=== PATIENT | female | born 1990 | race Caucasian/White ===

== ENCOUNTER → 2017-05-10 | Outpatient (CLI) | payer OTHER ==
[~2017-05-10] MED LIST: BECL0.07 INH; BIRTH CONTROL PO; CLON.5 PO; CRANCAP2 PO; DICY10 PO; LO LTAB PO; MONT10TA2 PO; SACC1CAP3 PO; SERT-132 PO; TRAM50TA PO
[2017-05-10 14:36] LABS: BLOOD, URINE NEG (NEG); COMMENT (UR) CULT NOT INDICATED; CULTURE IF INDICATED CULT NOT INDICATED; GLUCOSE,URINE NEG (NEG); KETONE, URINE NEG (NEG); MUCUS URINE FEW /lpf (OCC); NITRITE,URINE NEG (NEG); PH, URINE 5.5 (5.0-8.5); URINE COLOR YELLOW (YELLW/STRAW)
[2017-05-10 14:38] LABS: AUTOMATED NEUTROPHIL # 6.7 TH/MM3 (1.8-7.7); BASOPHIL # 0.1 TH/MM3 (0-0.2); BASOPHIL % 0.9 % (0.0-2.0); EOSINOPHIL # 0.2 TH/MM3 (0-0.4); EOSINOPHIL % 1.7 % (0.0-4.0); HEMATOCRIT 40.2 % (35.0-46.0); HEMO FLAGS DIFF FINAL; LYMPH % 32.7 % (9.0-44.0); LYMPHOCYTE # 3.6 TH/MM3 (1.0-4.8); MEAN CORPUSCULAR HEMOGLOBIN 31.1 PG (27.0-34.0); MEAN CORPUSCULAR HGB CONC 33.4 % (32.0-36.0); MONO % 4.4 % (0.0-8.0); NEUT % 60.3 % (16.0-70.0); PLATELET COUNT 357 TH/MM3 (150-450); RED BLOOD COUNT 4.32 MIL/MM3 (4.00-5.30); RED CELL DISTRIBUTION WIDTH 12.2 % (11.6-17.2)
[2017-05-10 15:27] LABS: BETA HCG QUANT LESS THAN 1 MIU/ML (0-5)
--- NOTE | 2017-05-12 07:51 | EKG ---
Date Performed: 05/10/2017 Time Performed: 14:05:36 PTAGE: 27 years EKG: Sinus rhythm Within normal limits NO PREVIOUS TRACING DOCTOR: Hitesh Caputo Interpretating Date/Time 05/12/2017 07:49:37
== END ==
LOC: CPRE 13:40
PROVIDERS: ATTEND Obstetrics & Gynecology
DX: Z01.810 Encounter for preprocedural cardiovascular examination (principal); Z01.812 Encounter for preprocedural laboratory examination; R10.2 Pelvic and perineal pain
CPT/HCPCS: 36415; 81001; 84702; 85025; 93005

== ENCOUNTER → 2017-05-13 | Day surgery (SDC) | payer OTHER ==
[~2017-05-13] VITALS: Ht 175.3 cm; Wt 97.2 kg
[~2017-05-13] MED LIST changes: +ACETAMINOPHEN 1000 MG/100 ML 100 ML IV ONE; +ACETAMINOPHEN 1000 MG/100 ML VIAL IV SCH; -BIRTH CONTROL PO; +CHLORHEXIDINE GLUCONATE 2 % 1 PACK (2 CLOTHS) TOPICAL PRN; +DEXAMETHASONE SOD PHOS 4 MG/ML VIAL IV ONE; -DICY10 PO; +DO NOT ADM ANY ANTICOAGULANT DRUGS PRN; +FAMOTIDINE 20 MG/2 ML VIAL ONE; +INSULIN HUMAN REGULAR 1,000 UNITS/10 ML VIAL SQ PRN; +KETOROLAC TROMETHAMINE 30 MG/ML (IVP) VIAL IV PUSH ONE; +LACTATED RINGER'S 1000 ML INJ 1,000 ML ONE; +LACTATED RINGER'S 1000 ML IV PRN; +METHYLENE BLUE 100 MG/10 ML VIAL ONE; +METOCLOPRAMIDE HCL 10 MG/2 ML VIAL IV PRN; +METOPROLOL TARTRATE 25 MG TAB PO PRN; +MIDAZOLAM HCL 2 MG/2 ML VIAL IV ONE; +ONDANSETRON HCL 4 MG/2 ML VIAL IV PUSH ONE; +OXYTOCIN 10 UNIT/ML AMP ONE; +POVIDONE IODINE 5% (ANTISEPSIS KIT) 4 APPLICATIONS EACH NARE PRN; +PROPOFOL 200 MG/20 ML AMP IV ONE; +ROCURONIUM INJ 50 MG/5 ML SYRINGE IV PUSH ONE; +SODIUM CHLORID 0.9% 500 ML IV PRN; +SODIUM CHLORIDE 0.9% INJ 100 ML ONE; +SUGAMMADEX SODIUM 200 MG/2 ML VIAL IV PUSH ONE; +ceFAZolin 1,000 MG/NS 100 ML IV SCH; +ceFAZolin INJ 1,000 MG VIAL ONE; +oxyCODONE/ACETAMINOPHEN 5 MG/325 MG TAB PO PRN
--- NOTE | 2017-05-13 08:01 | MP ---
cc: VIN LEE DATE OF SURGERY 05/13/2017 PREOPERATIVE DIAGNOSIS Pelvic pain, possible endometriosis. POSTOPERATIVE DIAGNOSIS Pelvic pain, primary dysmenorrhea. PROCEDURE Laparoscopy, chromotubation with methylene blue. ANESTHESIA General ET SURGEON Vin Lee MD STOCK CONTROL CLERK Susanne Fuller ESTIMATED BLOOD LOSS Less than 5 cc FLUIDS About half liter of crystalloid. OBJECTIVE FINDINGS Following the induction of adequate general endotracheal anesthesia, the patient was prepped and draped supine on the operating table in the dorsolithotomy position in the usual sterile fashion with the bladder being drained via catheterization. Exam under anesthesia revealed a normal size and shape anterior uterus with no adnexal masses. A Dimock speculum was placed in the vagina. The anterior lip of the cervix was grasped with a single toothed tenaculum. The cervix and uterus sounded to 7 cm with a soft dilator and the cervix dilated with a #18 Hanks dilator. A HUMI was placed. The other valves removed. The poacher operator's gloves were changed. The abdomen was opened through a 1/2 cm infraumbilical incision. A five port was placed followed by laparoscope with attached video cam, a second 5 suprapubic. The pelvic contents revealed a normal uterus, tubes and ovaries, cul-de-sacs, liver edge, appendix with no visible disease. Methylene blue was injected, but did not fill as the tube was spasming. All counts were correct. All instruments were removed. The gas was allowed to escape and each wound was injected with 5 cc of 0.4% Marcaine with epinephrine and closed with 3-0 Monocryl subcuticular. The HUMI was removed from the vagina. Legs taken out of the stirrups. She was awakened and taken to the recovery room in good condition. MD MADHAV Dacosta/JUAN /7:32 AM /7:37 AM
--- NOTE | 2017-05-13 09:37 | MH ---
cc: VIN LEE DATE OF ADMISSION: 05/13/2017 ADMISSION DIAGNOSIS Pelvic pain, possible endometriosis. HISTORY OF PRESENT ILLNESS The patient is a 27-year-old single white female, para 0 with a history of ___ months pelvic pressure pre and post cycle and mid cycle. Ultrasound was normal. She has failed to improve with medical therapy. She is now admitted for surgical evaluation. PAST MEDICAL HISTORY PREVIOUS SURGERY Repair of right knee dislocation in 2006. MEDICATIONS 1. OCPs. 2. Singulair. 3. Sertraline. 4. Probiotics. 5. Qvar inhaler. ALLERGIES MELON. ILLNESSES 1. Asthma. 2. Possible IBS. OBSTETRICAL HISTORY None. 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 Alcohol occasional, tobacco none, drugs none. FAMILY HISTORY Noncontributory. PHYSICAL EXAMINATION GENERAL: A well-nourished, well-developed white female. VITAL SIGNS: Stable. HEENT: Exam is normal. CHEST: Chest is clear. HEART: Regular rate. BREASTS: Symmetrical. ABDOMEN: Benign. PELVIC EXAM: Normal external genitalia and BUS. Vagina is normal. Cervix is normal. The uterus is normal size, shape anterior. Adnexa nonpalpable. ASSESSMENT As above. She is now admitted for laparoscopy. While in the office I explained the procedures, the risks, benefits and complications and possible need for additional surgery pending findings. The patient would like to proceed. MD MADHAV Dacosta/TLL /8:56 AM /9:04 AM
[2017-05-13 10:03] VITALS: BP 107/67; PULSE 67; RESP 20; TEMP 97.2; O2SAT 97
== END | disposition home or self-care (01) ==
LOC: HSDC 05:32
PROVIDERS: ATTEND Obstetrics & Gynecology
DX: R10.2 Pelvic and perineal pain (principal); N94.6 Dysmenorrhea, unspecified; J45.909 Unspecified asthma, uncomplicated
CPT/HCPCS: 00840; 00952; 49320; 58350; J0131; J0690; J1100; J1885; J2250; J2405; J2590; J3010; J7120

== ENCOUNTER 2017-10-11 20:18 | Emergency (ER) | payer BC, OTHER ==
[~2017-10-11 20:18] MED LIST changes: -ACETAMINOPHEN 1000 MG/100 ML 100 ML IV ONE; -ACETAMINOPHEN 1000 MG/100 ML VIAL IV SCH; -CHLORHEXIDINE GLUCONATE 2 % 1 PACK (2 CLOTHS) TOPICAL PRN; -DEXAMETHASONE SOD PHOS 4 MG/ML VIAL IV ONE; -DO NOT ADM ANY ANTICOAGULANT DRUGS PRN; -FAMOTIDINE 20 MG/2 ML VIAL ONE; -INSULIN HUMAN REGULAR 1,000 UNITS/10 ML VIAL SQ PRN; -KETOROLAC TROMETHAMINE 30 MG/ML (IVP) VIAL IV PUSH ONE; -LACTATED RINGER'S 1000 ML INJ 1,000 ML ONE; -LACTATED RINGER'S 1000 ML IV PRN; -METHYLENE BLUE 100 MG/10 ML VIAL ONE; -METOCLOPRAMIDE HCL 10 MG/2 ML VIAL IV PRN; -METOPROLOL TARTRATE 25 MG TAB PO PRN; -MIDAZOLAM HCL 2 MG/2 ML VIAL IV ONE; -ONDANSETRON HCL 4 MG/2 ML VIAL IV PUSH ONE; -OXYTOCIN 10 UNIT/ML AMP ONE; -POVIDONE IODINE 5% (ANTISEPSIS KIT) 4 APPLICATIONS EACH NARE PRN; -PROPOFOL 200 MG/20 ML AMP IV ONE; -ROCURONIUM INJ 50 MG/5 ML SYRINGE IV PUSH ONE; -SODIUM CHLORID 0.9% 500 ML IV PRN; -SODIUM CHLORIDE 0.9% INJ 100 ML ONE; -SUGAMMADEX SODIUM 200 MG/2 ML VIAL IV PUSH ONE; -ceFAZolin 1,000 MG/NS 100 ML IV SCH; -ceFAZolin INJ 1,000 MG VIAL ONE; -oxyCODONE/ACETAMINOPHEN 5 MG/325 MG TAB PO PRN
[2017-10-11 20:25] VITALS: PULSE 103; RESP 18; TEMP 101; O2SAT 97
[2017-10-12] MEDS ORDERED: NAPROXEN 500 MG TAB PO ONE (00:45)
--- NOTE | 2017-10-12 00:46 | PD ---
HPI Chief Complaint: Cold / Flu Symptoms Time Seen by Provider: 00:27 Travel History International Travel<30 days: No Contact w/Intl Traveler<30days: No Traveled to known affect area: No History of Present Illness HPI Is a 27-year-old woman who presents to the emergency department complaining of fever and body aches. States she started with some headache earlier today, and then developed fevers chills and severe body aches. She is a history of asthma. She otherwise had been feeling generally well. She had a cough cold about 2 weeks ago and had some persistent symptoms, especially some congestion. No real shortness of breath, she is a little bit tight when she gets sick and has been treated today. No nausea or vomiting. No abdominal pain. No urinary symptoms. No other complaints. History Past Medical History Narrative Medical Asthma LMP: UNK Social History Alcohol Use: Yes (occ) Tobacco Use: No Allergies-Medications (Allergen,Severity, Reaction): Coded Allergies: melon (Verified Allergy, Unknown, 05/10/17) Reported Meds & Prescriptions Reported Meds & Active Scripts Active Reported Cranberry Urinary Comfort (Vitamins C & E) 1 Cap 1 Cap PO DAILY Tramadol (Tramadol HCl) 50 Mg Tab 50 Mg PO Q6H PRN Klonopin (Clonazepam) 0.5 Mg Tab 0.5 Mg PO BID PRN Probiotic (Saccharomyces Boulardii) 250 Mg Cap 250 Mg PO DAILY Lo Loestrin Fe /10 (Norethindrone-Ethinyl Estradiol-Fe) 1-10 Mg-Mcg Tab 1 Tab PO DAILY Qvar Inh (Beclomethasone Dipropionate) 40 Mcg/Act Aero 2 Puff INH BID Singulair (Montelukast Sodium) 10 Mg Tab 10 Mg PO HS Sertraline (Sertraline HCl) 50 Mg Tab 50 Mg PO DAILY Review of Systems Except as stated in HPI: all other systems reviewed are Neg Physical Exam Narrative GENERAL: Well-appearing 27-year-old woman, no acute distress per SKIN: Focused skin assessment warm/dry. HEAD: Atraumatic. Normocephalic. EYES: Pupils equal and round. No scleral icterus. No injection or drainage. ENT: No nasal bleeding or discharge. Mucous membranes pink and moist. TMs normal. Throat is a little bit of injection, NECK: Trachea midline. No meningismus. A little bit of anterior cervical adenopathy anteriorly. CARDIOVASCULAR: Regular rate and rhythm. No murmur appreciated. RESPIRATORY: No accessory muscle use. Clear to auscultation. Breath sounds equal bilaterally. GASTROINTESTINAL: Abdomen soft, non-tender, nondistended. Hepatic and splenic margins not palpable. MUSCULOSKELETAL: No obvious deformities. No clubbing. No cyanosis. No edema. NEUROLOGICAL: Awake and alert. No obvious cranial nerve deficits. Motor grossly within normal limits. Normal speech. PSYCHIATRIC: Appropriate mood and affect; insight and judgment normal. Data Data Last Documented VS Vital Signs Date Time Temp Pulse Resp B/P (MAP) Pulse Ox O2 Delivery O2 Flow Rate FiO2 10/11/17 20:25 101.0 103 18 97 Orders Orders Influenzae A/B Antigen (10/11/17 20:27) Naproxen (Naprosyn) (10/12/17 00:45) Group A Rapid Strep Screen (10/12/17 00:44) Strep Culture (Group A) (10/12/17 00:40) MDM Medical Decision Making Medical Screen Exam Complete: Yes Emergency Medical Condition: Yes Interpretation(s) Rapid strep is negative. Influenza negative. Differential Diagnosis Flu, viral syndrome, strep throat, pneumonia, bronchitis, meningoencephalitis, other Narrative Course Medical decision making INITIAL 27-year-old woman presents with abrupt onset of fever headache myalgias , looks well, some cough and congestion, this came on abruptly. She looks well. I think this is probably out of the window for a post viral pneumonia. No respiratory distress or other respiratory symptoms. Normal pulmonary exam. Will check flu, and strep. Recommend supportive treatment. Diagnosis Primary Impression: Flu-like symptoms Additional Instructions: Drink plenty of fluids stay well-hydrated. Follow with your primary doctor in the next 2-4 days. Use Zofran as needed for nausea or vomiting. Take ibuprofen or acetaminophen as needed for fever or body aches. Med/Other Pt SpecificInfo: Prescription(s) given Scripts Ondansetron Odt (Zofran Odt) 4 Mg Tab 4 MG SL Q8HR Y for Nausea/Vomiting, #30 TAB 0 Refills Prov: Gaurav Escobar MD 10/12/17 Disposition: 01 DISCHARGE HOME Condition: Stable Gaurav Escobar MD Oct 12, 2017 00:46
[2017-10-12] MEDS ORDERED: ZOFR4TAB3 SL (01:16)
== END 2017-10-12 01:41 | disposition home or self-care (01) ==
LOC: NED 20:18 → NEPD 10-12 01:41
DX: R50.9 Fever, unspecified (principal); R51 Headache; M79.1 Myalgia; R05 Cough; R09.81 Nasal congestion; J45.909 Unspecified asthma, uncomplicated; Z79.899 Other long term (current) drug therapy
CPT/HCPCS: 87081; 87804; 87880; 99283